=== PATIENT | female | born 1965 | race African-American/Black ===

== ENCOUNTER 2017-01-06 20:08 | Inpatient (IN) | payer OTHER ==
[~2017-01-06] VITALS: Ht 162.6 cm; Wt 109.3 kg
--- NOTE | ~2017-01-06 | HC ---
[facility] [address] [place] [address] CONSULTATION Name: DAX FREIRE Room #: 533-P ADM IN M.R.#: [id number] Admission: 01/06/17 Attend Phys: Grover Cuadra DO Discharge: Date of : 69 Report #: [id number] THIS REPORT FOR: //name// CC: HYACINTH physician/PCP Grover Cuadra REASON FOR CONSULTATION: I was asked to evaluate concerning pneumonia. HISTORY OF PRESENT ILLNESS: The patient is a 51-year-old with history of interstitial lung disease and rheumatoid arthritis. She has been on immunosuppression with mycophenolate. Last 10 days, she has had increasing cough and shortness of breath. Her baseline oxygen needs include 2 liters at rest and 6 liters with exercise. She has bumped that up to 8 liters over the last week. She has had cough, which has been nonproductive. Occasional sweats and chill, but no documented fever. No pleuritic chest pain. No hemoptysis. She has occasional nose bleed. She has had no travel. No other exposures to ill persons. No recent steroid use or antibiotic use. No history of tuberculosis, HIV risks or travel outside the [place]. She has had multiple pneumonias documented previously. ALLERGIES: None known. MEDICATIONS: As noted on her MAR including mycophenolate, azithromycin and ceftriaxone. 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 FAMILY HISTORY: Lung cancer, coronary artery disease, and hypertension. SOCIAL HISTORY: Nonsmoker. No significant alcohol intake. She is currently disabled. REVIEW OF SYSTEMS: Denies any rash, adenopathy, headache, pharyngitis symptoms, or chest pain. She did have some nausea and emesis along with diarrhea earlier in the week. The symptoms have resolved, although she remains somewhat anorexic. No dysuria or frequency. Arthritis symptoms remain about the same for her. PHYSICAL EXAMINATION: VITAL SIGNS: Afebrile, hemodynamically stable. She was on 4 liters of oxygen per nasal cannula. GENERAL: Sitting up in bed, in no acute distress. Moderately obese, alert, cooperative, and pleasant. SKIN: Unremarkable. LYMPH: Unremarkable. [facility] [address] [place] [address] CONSULTATION Name: DAX FREIRE Room #: 533-P [facility] IN .R.#: [id number] Admission: 01/06/17 Attend Phys: Grover Cuadra DO Discharge: Date of : 69 Report #: [id number] HEENT: Unremarkable. NECK: Supple. LUNGS: Clear. HEART: Regular without murmur. ABDOMEN: Soft, nontender, no hepatosplenomegaly or mass. EXTREMITIES: Severe arthritis, most symptomatic in her right shoulder. Extremities otherwise unremarkable. NEUROLOGIC: Normal. LABORATORY STUDIES: Hemoglobin 13.6, platelet count 252,000, white count 5.8, 52% segs, 30% lymphs. Sodium 138, potassium 3.9, bicarbonate of 28, creatinine 1.3. Chest x-ray, cardiomegaly with bilateral infiltrates consistent with edema versus fibrosis. On 6 liters of oxygen per nasal cannula. On admission, she had a pO2 of 75, pCO2 of 39, and pH 7.46. IMPRESSION: A 51-year-old with exacerbation of her interstitial lung disease. Still possible community-acquired pneumonia is playing a role here. The patient is immunosuppressed. Recommend viral respiratory panel, urine antigen testing to treat for pneumonia. Should be okay to switch to oral therapy and continue her current level of immunosuppression. <ELECTRONICALLY SIGNED> By: Volodymyr Craig MD 01/08/17 1551 [id number] Volodymyr Craig MD /nt
--- NOTE | ~2017-01-06 | P ---
[facility] [address] [place] [address] PROCEDURE REPORT Name: DAX FREIRE Room #: 533-P [facility] IN M.R.#: [id number] Admission: 01/06/17 Attend Phys: Grover Cuadra DO Discharge: 01/09/17 Date of : 69 Report #: [id number] THIS REPORT FOR: //name// CC: HYACINTH physician/PCP Grover Cuadra Nocturnal desaturation study on 4 liters. Total study duration 6 hours 54 minutes. Low oxygen saturation 78%, spending 4.5% of recording time less than 90%. IMPRESSION: Abnormal nocturnal desaturation study with 285 desaturations. Further evaluation is recommended. May consider sleep study. By: [id number] Dhiraj Gil MD /nt
--- NOTE | ~2017-01-06 | EKG ---
[address] [place] [address] ELECTROCARDIOGRAM REPORT Name: DAX RFEIRE Room #: 533-P ADM IN M.R.#: [id number] Admission: 01/06/17 Attend Phys: Grover Cuadra DO Discharge: Date of : 69 Report #: [id number] THIS REPORT FOR: //name// [facility] ED Test Date: 2017-01-06 Test Time: 20:19:09 Pat Name: DAX FREIRE Department: Room: 533 Gender: F Clinical Lab Clerk: Teri DUFFY : 1965 Requested By: Livier Brar Order Number: [id number] MD: Brandon Javed Measurements Intervals [place] Rate: 96 P: -50 NC: 202 QRS: -56 QRSD: 138 T: 93 QT: 396 QTc: 501 Interpretive Statements Sinus rhythm Ventricular bigeminy Borderline prolonged NC interval Left atrial enlargement RBBB and LAFB Inferior infarct, old Compared to ECG 05/06/2016 20:51:26 Sinus rhythm history has replaced supraventricular tachycardia Electronically Signed On 01-07-2017 17:30:43 CDT by Brandon Javed [email or web address] <ELECTRONICALLY SIGNED> By: Brandon Javed MD, [facility] 01/07/17 1730 18 18 Brandon Javed MD, [facility] /EPI
[~2017-01-06 20:08] MED LIST: ACETAMINOPHEN325 M1 PO; AUGMENTIN 875875 MG PO; CARDIZEM CD240 MG PO; CATAPRES-TTS 20.2 MG TRANSDERM; COUMADIN 5 MG TA5 M1 PO; DIGOXIN125 MCG PO; FOLIC ACID1 MG PO; FUROSEMIDE 20 M20 MG PO; HYDROCHLOROTHIA25 M1 PO; HYDROCODON-ACE1 EACH PO; K-DUR 20 MEQ T20 MEQ PO; LASIX 40 MG TAB40 M1 PO; LEVAQUIN 500 M500 M1 PO; LEVOTHYROXIN0.025 MG PO; LISINOPRIL40 MG PO; LOPRESSOR25 PO; METHOTREXATE 22.5 M1 PO; NEXIUM40 MG PO; NOHOMEMEDICATIONS PO; NORCO 5-325 TA1 EACH PO; NORVASC 2.5 MG2.5 MG PO; NORVASC 5 MG TAB5 MG PO; OXYGEN MISCELL; POTASSIUM20 PO; PREDNISONE 10 M10 M1 PO; PREDNISONE 5 MG5 M1 PO; PROVENTIL HFA6.7 G1 INH; SENNA PO; SULFASALAZINE500 M4 PO; TORSEMIDE20 MG PO; TRAMADOL 50 MG50 MG PO; TRIAMCINOLONE A80 G2 TOP; ULTRACET TABLE1 EACH PO; VITAMIN D32000 UNI1 PO
[2017-01-06 20:10] VITALS: BP 118/74
[2017-01-06 20:42] LABS: ABG SAMPLE TYPE ARTERIAL; BE(vivo) 3.5 mmol/L (-2 to +3); HCO3 27.5 mmol/L (22.0-26.0); LACTATE 1.58 mmol/L (0.5-2.0); O2Hb 93.8 % (92.0-98.0); PCO2 39.6 mmHg (35.0-45.0); PO2 75.5 mmHg (80.0-100.0); STICK SITE L.RADIAL; sO2 95.8 % (92.0-98.0); tCO2 28.7 mmol/L (24.0-30.0)
[2017-01-06 21:00] LABS: ABSOLUTE NEUTROPHILS 3.8 thou/uL (1.4-8.2); BASOPHILS 1.5 % (0.0-2.0); HEMATOCRIT 42.1 % (37.0-47.0); LYMPHOCYTES 22.6 % (24.0-44.0); MCH 30.2 pg (26.0-34.0); MCHC 33.2 g/dL (28.0-37.0); MCV 90.9 fL (80.0-100.0); MONOCYTES 10.5 % (1.0-8.0); PLATELET COUNT 243 thou/uL (150-400); POLYS 63.4 % (36.0-66.0); RBC 4.63 mil/uL (4.20-5.00); RDW 14.1 % (10.5-14.5)
[2017-01-06 21:20] LABS: MANUAL DIFF NO
[2017-01-06 21:39] LABS: ANION GAP 7 mmol/L (7-16); BUN 23 mg/dL (7-18); CALCIUM 10.5 mg/dL (8.5-10.1); CHLORIDE 101 mmol/L (98-107); CO2 31 mmol/L (21-32); CREATININE 1.4 mg/dL (0.6-1.0); GLUCOSE 115 mg/dL (74-106); POTASSIUM 3.7 mmol/L (3.5-5.1); SODIUM 139 mmol/L (136-145)
[2017-01-06 21:51] LABS: NT-PRO BRAIN NAT PEPTIDE 944 pg/mL (<300); TROPONIN-I < 0.04 ng/mL (<0.04-0.07)
[2017-01-06 23:10] VITALS: BP 133/86
[2017-01-06] MEDS ORDERED: ALDACTONE50 MG PO (23:14)
[2017-01-06 23:16] VITALS: BP 118/74
[2017-01-06] MEDS ORDERED: CELLCEPT500 MG PO (23:16)
[2017-01-06] MEDS ORDERED: ADCIRCA20 MG PO (23:19)
[2017-01-06] MEDS ORDERED: LASIX 40 MG TAB40 M2 PO (23:20)
[2017-01-06] MEDS ORDERED: IRON325 PO (23:21)
[2017-01-06] MEDS ORDERED: PROTONIX40 M1 PO (23:21)
[2017-01-06] MEDS ORDERED: APAP500 PO (23:24)
[2017-01-06] MEDS ORDERED: BENADRYL25 MG PO (23:26)
[2017-01-07 03:10] VITALS: BP 109/74
[2017-01-07 08:44] VITALS: BP 114/68
[2017-01-07 17:40] VITALS: BP 108/72
[2017-01-07 18:49] VITALS: BP 117/72
[2017-01-08 03:51] VITALS: BP 112/85
[2017-01-08 06:30] LABS: CALCIUM 9.3 mg/dL (8.5-10.1); CREATININE 1.3 mg/dL (0.6-1.0)
[2017-01-08 06:36] LABS: POTASSIUM 3.9 mmol/L (3.5-5.1)
[2017-01-08 07:02] VITALS: BP 113/75
[2017-01-08 07:30] LABS: HEMOGLOBIN 13.6 gm/dL (12.0-15.0); MCHC 32.3 g/dL (28.0-37.0); PLATELET COUNT 252 thou/uL (150-400); RBC 4.52 mil/uL (4.20-5.00); RDW 14.1 % (10.5-14.5); WBC 5.8 thou/uL (4.0-11.0)
[2017-01-08 07:32] LABS: MANUAL DIFF YES
[2017-01-08 08:30] LABS: TOTAL CELL COUNT 100
[2017-01-08 08:31] LABS: ANISOCYTOSIS SLIGHT
[2017-01-08] MEDS ORDERED: KEFLEX500 MG PO (08:31)
[2017-01-08] MEDS ORDERED: AZITHROMYCIN 2250 MG PO (08:31)
[2017-01-08] MEDS ORDERED: MEDROL DOSPAK21 TA1 PO (08:31)
[2017-01-08] MEDS ORDERED: CEFDINIR300 MG PO (11:33)
[2017-01-08 16:19] VITALS: BP 106/74
[2017-01-08 18:56] VITALS: BP 111/66
[2017-01-09 03:57] VITALS: BP 102/64
[2017-01-09 07:05] VITALS: BP 102/72
[2017-01-09 12:30] VITALS: BP 102/72
[2017-01-09 12:34] VITALS: BP 102/72
[2017-01-09 15:23] VITALS: BP 102/72
[2017-01-11 21:07] LABS: INFLUENZA B Negative (Negative); METAPNEUMOVIRUS Negative (Negative)
== END 2017-01-09 16:15 | disposition home health service (06) | DRG 189 ==
LOC: ER 20:08 → 5S 22:23 → EROBS 22:23 → 5S 23:00
PROVIDERS: Emergency Medicine; Family Medicine; Specialist
DX: J96.21 Acute and chronic respiratory failure with hypoxia (principal); J18.9 Pneumonia, unspecified organism; I50.33 Acute on chronic diastolic (congestive) heart failure; J44.0 Chronic obstructive pulmonary disease with (acute) lower respiratory infection; J44.1 Chronic obstructive pulmonary disease with (acute) exacerbation; I11.0 Hypertensive heart disease with heart failure; M06.9 Rheumatoid arthritis, unspecified; I27.2 Other secondary pulmonary hypertension; E03.9 Hypothyroidism, unspecified; Z99.81 Dependence on supplemental oxygen; Z83.6 Family history of other diseases of the respiratory system; Z82.49 Family history of ischemic heart disease and other diseases of the circulatory system
CPT/HCPCS: 10086